=== PATIENT | male | born 1990 ===

== ENCOUNTER 2024-07-09 23:40 | Inpatient (IN) | payer MEDICAID ==
[~2024-07-09] VITALS: Ht 180.3 cm; Wt 95.0 kg
[2024-07-10 00:52] LABS: APPEARANCE,URINE CLEAR (CLEAR); BILIRUBIN,URINE NEGATIVE (NEGATIVE); COLOR,URINE LIGHT YELLOW (YELLOW); GLUCOSE, URINE (UA) NEGATIVE (NEGATIVE); KETONES,URINE NEGATIVE (NEGATIVE); LEUKOCYTE ESTERASE ,URINE NEGATIVE (NEGATIVE); NITRATE,URINE NEGATIVE (NEGATIVE); OCCULT BLOOD,URINE NEGATIVE (NEGATIVE); PROTEIN,URINE NEGATIVE (NEGATIVE); SPECIFIC GRAVITIY, URINE 1.023 (1.003-1.030); UROBILINOGEN,URINE <=1.0 mg/dL (<=1.0)
[2024-07-10 01:00] LABS: ALCOHOL, URINE DRUG SCREEN NEGATIVE (NEGATIVE); AMPHET/METH SCREEN,URINE POSITIVE (NEGATIVE); BARBITURATE SCREEN, URINE NEGATIVE (NEGATIVE); BENZODIAZEPINES SCREEN,URINE NEGATIVE (NEGATIVE); CANNABINOID SCREEN,URINE NEGATIVE (NEGATIVE); COCAINE SCREEN,URINE NEGATIVE (NEGATIVE); METHADONE SCREEN, URINE NEGATIVE (NEGATIVE); OPIATE SCREEN,URINE NEGATIVE (NEGATIVE); PHENCYCLIDINE SCREEN,URINE NEGATIVE (NEGATIVE)
[2024-07-10] MEDS: LORazepam 2 MG/ML VIAL IM ONE (01:44)
[2024-07-10] MEDS: DiphenhydrAMINE HCL 50 MG/ML VIAL IM ONE (01:44)
[2024-07-10] MEDS: HALOPERIDOL LACTATE 5 MG/ML VIAL IM ONE (01:45)
[2024-07-10 02:28] LABS: COVID AG,FIA SOURCE NASAL SWAB
[2024-07-10 02:32] LABS: BASOPHILS % (AUTO) 1.2 % (0.0-2.0); EOSINOPHILS % (AUTO) 4.4 % (1.0-6.0); HEMATOCRIT 38.8 % (41-53); HEMOGLOBIN 13.1 g/dL (13.5-17.5); LYMPHOCYTES # (AUTO) 1.6 K/uL (1.0-4.8); LYMPHOCYTES % (AUTO) 15.9 % (22.0-44.0); MEAN CORPUSCULAR HEMOGLOBIN 31.4 pg (26.0-34.0); MEAN CORPUSCULAR HGB CONC 33.7 G/dL (31.0-37.0); MEAN CORPUSCULAR VOLUME 93 fL (80-100); MONOCYTES # (AUTO) 0.7 K/uL (0.1-1.0); MONOCYTES % (AUTO) 6.5 % (2.0-9.0); NEUTROPHILS # (AUTO) 7.2 K/uL (1.8-7.7); PLATELET COUNT (AUTO) 275 K/uL (150-450); RED BLOOD CELL COUNT(AUTO) 4.18 MIL/uL (4.50-5.90); RED CELL DISTRIBUTION WIDTH 13.2 % (11.5-14.5)
[2024-07-10 02:38] LABS: ANION GAP 8 mmol/L (8-16); CALCIUM, TOTAL 8.2 mg/dL (8.8-10.5); CARBON DIOXIDE 27 mmol/L (22-29); CHLORIDE 106 mmol/L (98-107); CREATININE 1.18 mg/dL (0.60-1.30); GLOMERULAR FILTR. RATE CALC > 60 mL/min (>60); GLUCOSE,RANDOM 102 mg/dL (70-110); POTASSIUM 3.6 mmol/L (3.5-5.1); SODIUM SERUM 141 mmol/L (136-145); UREA NITROGEN, BLOOD 20 mg/dL (7-18)
[2024-07-10 02:44] LABS: SARS-COV2 (COVID) ANTIGEN,FIA Negative (Negative)
[2024-07-10 02:46] LABS: INFLUENZA TYPE A NEGATIVE FOR TYPE A (NEGATIVE); INFLUENZA TYPE B NEGATIVE FOR TYPE B (NEGATIVE)
[2024-07-10] MEDS ORDERED: HALOPERIDOL 5 MG TABLET PO PRN (03:45)
[2024-07-10] MEDS ORDERED: ZOLPIDEM TARTRATE 10 MG TABLET PO PRN (03:45)
[2024-07-10 05:05] VITALS: BP 95/45; PULSE 82; RESP 16; TEMP 98.2; O2SAT 98
[2024-07-10] MEDS ORDERED: ALBUTEROL SULFATE HFA 90 MCG/PUFF 8 GM INHALER IH PRN (08:00)
[2024-07-10] MEDS ORDERED: CloNIDine HCL 0.1 MG TABLET PO PRN (08:00)
[2024-07-10] MEDS ORDERED: DOCUSATE SODIUM 100 MG CAPSULE PO PRN (08:00)
[2024-07-10] MEDS ORDERED: LOPERAMIDE HCL 2 MG CAPSULE PO PRN (08:00)
[2024-07-10] MEDS ORDERED: MAG HYDROX/ALUMINUM HYD/SIMETH ES 30 ML SUSPENSION UDCUP PO PRN (08:00)
[2024-07-10] MEDS ORDERED: ACETAMINOPHEN 325 MG TABLET PO PRN (08:00)
[2024-07-10] MEDS ORDERED: MAGNESIUM HYDROXIDE SUSPENSION 30 ML UDCUP PO PRN (08:00)
[2024-07-10] MEDS ORDERED: ONDANSETRON 4 MG TABLET PO PRN (08:00)
[2024-07-10] MEDS ORDERED: GuaiFENesin/D-METHORPHAN [SUGAR-FREE] 200-20MG/10 ML SYRUP UDCUP PO PRN (08:00)
[2024-07-10] MEDS ORDERED: PETROLATUM,WHITE 28 GM JELLY TP PRN (08:00)
[2024-07-10] MEDS: RisperiDONE 1 MG TABLET PO SCH (13:29)
[2024-07-10 14:14] VITALS: RESP 15
[2024-07-10 20:42] VITALS: BP 135/74; PULSE 82; RESP 16; TEMP 98.1; O2SAT 98
[2024-07-11 08:31] LABS: CHOL/HDL RATIO 2.8 (4.2-7.3); THYROID STIMULATING HORMONE 2.35 uIU/mL (0.36-3.74)
[2024-07-11 08:32] LABS: HEMOGLOBIN A1C 5.2 % (3.8-5.6)
[2024-07-11 10:47] VITALS: BP 105/59; PULSE 95; RESP 18; TEMP 98.8; O2SAT 98
[2024-07-11] MEDS: LORazepam 2 MG TABLET PO PRN (15:06)
[2024-07-11] MEDS: NICOTINE 14 MG/24 HOUR PATCH TD PRN (15:06)
[2024-07-11 22:18] VITALS: BP 125/48; PULSE 78; RESP 18; TEMP 98; O2SAT 98
[2024-07-12 15:11] VITALS: BP 106/56; PULSE 80; RESP 19; TEMP 97.2; O2SAT 98
[2024-07-12] MEDS: IBUPROFEN 400 MG TABLET PO PRN (17:07)
[2024-07-12] MEDS ORDERED: RISP-31 PO (19:01)
[2024-07-12 22:37] VITALS: RESP 18
== END 2024-07-13 00:05 | disposition home or self-care (01) | DRG 750 ==
LOC: EMS 23:40 → 3EI 07-10 05:04
PROVIDERS: ADMIT Psychiatry & Neurology Psychiatry; ATTEND Psychiatry & Neurology Psychiatry
PROC: GZHZZZZ Group Psychotherapy (ICD-10-PCS; principal; 2024-07-10)
DX: F25.0 Schizoaffective disorder, bipolar type (principal); R45.850 Homicidal ideations; F15.10 Other stimulant abuse, uncomplicated; F90.9 Attention-deficit hyperactivity disorder, unspecified type; Z20.822 Contact with and (suspected) exposure to COVID-19; D64.9 Anemia, unspecified; Z79.899 Other long term (current) drug therapy; Z88.1 Allergy status to other antibiotic agents; Z65.3 Problems related to other legal circumstances; Z91.51 Personal history of suicidal behavior
CPT/HCPCS: 80048; 80061; 80307; 81003; 83036; 84443; 85025; 87804; 99285; J1200; J1630; J2060